=== PATIENT | female | born 1995 | race Asian ===

== ENCOUNTER 2023-08-16 08:00 | Outpatient (CLI) | payer MEDICAID ==
[2023-08-16 16:13] LABS: CREATININE,URINE 48.3 mg/dL; PROTEIN/CREATININE RATIO,URINE 0.3 (<=0.2)
== END 2023-08-16 23:59 | disposition home or self-care (01) ==
LOC: LAB.WC 08:00
PROVIDERS: ATTEND Nurse Practitioner
DX: O34.211 Maternal care for low transverse scar from previous cesarean delivery (principal)
CPT/HCPCS: 82570; 84156

== ENCOUNTER 2023-08-23 08:00 | Outpatient (CLI) | payer MEDICAID | END 2023-08-23 23:59 | disposition home or self-care (01) | LOC: LAB.WC 08:00 | PROVIDERS: ATTEND Nurse Practitioner | DX: Z36.85 Encounter for antenatal screening for Streptococcus B (principal) | CPT/HCPCS: 87797 ==